=== PATIENT | male | born 1980 | race African-American/Black ===

== ENCOUNTER 2020-03-29 09:58 | Inpatient (IN) ==
[2020-03-29] MEDS ORDERED: ONDANSETRON HCL/PF 2 MG/ML VIAL IV ONE (10:20)
[2020-03-29] MEDS ORDERED: MORPHINE SULFATE 2 MG/ML DISP.SYRIN IV ONE (10:21)
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
[2020-03-29 10:39] LABS: Urine Bilirubin Negative (NEGATIVE); Urine Blood Negative /ul (NEGATIVE); Urine Ketone Negative (NEGATIVE); Urine Nitrite Negative (NEGATIVE); Urine Protein 15 mg/dL (NEGATIVE); Urine Urobilinogen Normal (NORMAL); Urine pH 7.5 pH (5.0-7.0)
[2020-03-29 10:43] LABS: Hematocrit 40.4 % (42.0-52.0); Hemoglobin 13.4 gm/dL (13.5-18.0); Mean Cell Volume 94.6 fl (78-100); Mean Corpuscular Hemoglobin 31.4 pg (27-31); Mean Corpuscular Hgb Conc 33.2 g/dl (32-36); Mean Platelet Volume 10.9 fl (8-11.3); Neutrophil # 8.1 K/mm3 (1.3-6.0); Neutrophil % 72.9 % (42-75.0); Platelet Count 234 K/mm3 (150-450); Red Blood Count 4.27 M/mm3 (4.7-6.0); Red Cell Distribution Width 12.1 % (11.5-14.0); White Blood Count 11.1 K/mm3 (4.0-10.5)
[2020-03-29 10:47] LABS: Urine Appearance Clear (CLEAR); Urine Bacteria None Seen; Urine Color Yellow; Urine WBC 0-5 /hpf (0-5)
[2020-03-29 10:48] LABS: Urine RBC None Seen /hpf (0-5)
[2020-03-29 10:51] LABS: Prothrombin Time (Patient) 10.5 Seconds (9.1-10.7)
[2020-03-29 10:52] LABS: INR 1.06 INR (0.92-1.08); Partial Thrombolplastin Time 30.3 Seconds (24-32)
[2020-03-29 10:56] LABS: Cocaine Ur Negative (NEGATIVE); Urine Barbiturate Negative (NEGATIVE); Urine Benzodiazepines Negative (NEGATIVE); Urine Opiates Negative (NEGATIVE); Urine PCP Negative (NEGATIVE)
[2020-03-29 10:56] LABS: ALT 73 U/L (19-67); AST 35 U/L (0-48); Alkaline Phosphatase * 87 U/L (50-170); Amylase * 467 U/L (25-115); Anion Gap 11.1 mmol/L (6.8-13.8); BUN/Creatinine Ratio 12.6 (9.0-21.6); Bilirubin, Total 0.4 mg/dL (0.0-1.1); Blood Urea Nitrogen 14 mg/dL (6-23); Ca. Corrected For Albumin 8.9 mg/dL (8.4-10.2); Calcium * 9.2 mg/dL (7.9-10.9); Carbon Dioxide 30.4 mmol/L (24-32.6); Chloride 104 mmol/L (97-106); Glucose * 112 mg/dL (70-110); Magnesium 1.9 mg/dL (1.2-2.8); Potassium 3.5 mmol/L (3.4-4.6); Sodium 142 mmol/L (132-142); Total Protein 7.3 gm/dL (6.2-8.2)
[2020-03-29 11:00] LABS: Urine THC Positive (NEGATIVE)
[2020-03-29] MEDS ORDERED: MORPHINE SULFATE 4 MG/ML SYRG IV ONE (11:13)
[2020-03-29] MEDS: NORMAL SALINE 1,000 ML IV PRN ×4 (11:22→22:38)
[2020-03-29 11:31] LABS: Lipase 4644 U/L (73-393)
[2020-03-29] MEDS ORDERED: ONDANSETRON HCL/PF 2 MG/ML VIAL IV PRN (11:50)
[2020-03-29] MEDS ORDERED: MORPHINE SULFATE 4 MG/ML SYRG IV PRN (11:50)
[2020-03-29] MEDS ORDERED: MULTIVIT INFUSN,ADULT 4,VIT K 10 ML, THIAMINE HCL 100 MG in DEXTROSE 5 % IN WATER 1,000 ML IV SCH ×3 (13:00)
[2020-03-29] MEDS ORDERED: MULTIVIT INFUSN,ADULT 4,VIT K 10 ML, THIAMINE HCL 100 MG in NORMAL SALINE 1,000 ML IV SCH ×2 (14:45→15:00)
[2020-03-29] MEDS: ENALAPRILAT DIHYDRATE 2.5 MG/2 ML VIAL IV SCH ×2 (14:56→21:00)
[2020-03-29] MEDS: amLODIPine BESYLATE 10 MG TABLET PO SCH (14:56)
[2020-03-29] MEDS: MORPHINE SULFATE 10 MG/ML SYRG IV PRN ×5 (15:09→23:43)
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
[2020-03-30] MEDS: MORPHINE SULFATE 10 MG/ML SYRG IV PRN ×3 (01:46→07:43)
[2020-03-30] MEDS: ENALAPRILAT DIHYDRATE 2.5 MG/2 ML VIAL IV SCH ×2 (03:00→07:49)
[2020-03-30 06:45] LABS: Albumin * 3.5 gm/dl (3.4-5.0); Anion Gap 9.8 mmol/L (6.8-13.8); BUN/Creatinine Ratio 8.6 (9.0-21.6); Bilirubin, Total 0.6 mg/dL (0.0-1.1); Ca. Corrected For Albumin 8.3 mg/dL (8.4-10.2); Calcium * 8.2 mg/dL (7.9-10.9); Carbon Dioxide 28.6 mmol/L (24-32.6); Potassium 3.4 mmol/L (3.4-4.6); Total Protein 6.8 gm/dL (6.2-8.2)
[2020-03-30] MEDS: NORMAL SALINE 1,000 ML IV PRN (06:46)
[2020-03-30 07:00] LABS: Hematocrit 44.3 % (42.0-52.0); Hemoglobin 14.7 gm/dL (13.5-18.0); Mean Cell Volume 94.3 fl (78-100); Mean Corpuscular Hemoglobin 31.3 pg (27-31); Mean Corpuscular Hgb Conc 33.2 g/dl (32-36); Mean Platelet Volume 11.3 fl (8-11.3); Neutrophil # 9.3 K/mm3 (1.3-6.0); Neutrophil % 74.2 % (42-75.0); Platelet Count 237 K/mm3 (150-450); White Blood Count 12.6 K/mm3 (4.0-10.5)
[2020-03-30] MEDS: amLODIPine BESYLATE 10 MG TABLET PO SCH (09:43)
--- NOTE | 2020-03-30 09:52 | PN ---
Subjective - Date and Time Seen Date: 03/30/20 Time: 08:10 Subjective Narrative: Parrish Hill is feeling quite a bit better this morning. He denies nausea and he has not had any further emesis. He denies abdominal pain. He did notice some abdominal discomfort after taking his morning medicines. His blood pressure remains elevated with diastolic of 115 this morning. He is getting amlodipine 10 mg daily and enalapril 2-1/2 mg 4 times daily. I will change that to oral today. His lipase is dropped from an admission of 4644 down to 923 this morning. He has had a clear liquid breakfast and is tolerated that well without any abdominal discomfort or nausea developing. I will keep him on clear liquids today recheck his lipase again in the morning and progress his diet afterwards if he is doing well. He is not showing any signs of alcohol withdrawal. Objective - Review of Systems Generalized/Overall Review: Reports: Weakness EENTM: Reports: No Symptoms Reported Respiratory: Reports: No Symptoms Reported Cardiac: Reports: No Symptoms Reported Abdominal: Reports: No Symptoms Reported Genitourinary Symptoms: Reports: No Symptoms Reported Musculoskeletal Complaints: Reports: No Symptoms Reported Neurological: Reports: No Symptoms Reported Skin: Reports: No Symptoms Reported Endocrine: Reports: No Symptoms Reported - Vitals Vitals: Last Vital Signs Temp 36.8 C 03/30/20 06:35 Pulse 81 03/30/20 07:49 Resp 20 03/30/20 06:35 BP 165/116 H 03/30/20 07:49 Pulse Ox 100 03/30/20 06:35 - Abnormal Lab Findings Abnormal Lab Findings: Abnormal Lab Results 03/29/20 03/29/20 03/29/20 Range/Units 10:37 10:37 10:39 WBC 11.1 H (4.0-10.5) K/mm3 RBC 4.27 L (4.7-6.0) M/mm3 Hgb 13.4 L (13.5-18.0) gm/dL Hct 40.4 L (42.0-52.0) % MCH 31.4 H (27-31) pg Immature Gran # (Auto) (0.000-0.0310) K/mm3 Lymphocytes % 17.1 L (20-51) % Neutrophils # 8.1 H (1.3-6.0) K/mm3 Monocytes # (0.0-1.0) k/mm3 BUN/Creatinine Ratio (9.0-21.6) Random Glucose 112 H (70-110) mg/dL Calcium Adj for Albumin (8.4-10.2) mg/dL ALT 73 H (19-67) U/L Amylase 467 H (25-115) U/L Lipase 4644 H (73-393) U/L Urine Protein 15 H (NEGATIVE) mg/dL Urine Marijuana (THC) (NEGATIVE) 03/29/20 03/30/20 03/30/20 Range/Units 10:39 06:28 06:28 WBC 12.6 H (4.0-10.5) K/mm3 RBC (4.7-6.0) M/mm3 Hgb (13.5-18.0) gm/dL Hct (42.0-52.0) % MCH 31.3 H (27-31) pg Immature Gran # (Auto) 0.05 H (0.000-0.0310) K/mm3 Lymphocytes % 15.2 L (20-51) % Neutrophils # 9.3 H (1.3-6.0) K/mm3 Monocytes # 1.1 H (0.0-1.0) k/mm3 BUN/Creatinine Ratio 8.6 L (9.0-21.6) Random Glucose (70-110) mg/dL Calcium Adj for Albumin 8.3 L (8.4-10.2) mg/dL ALT (19-67) U/L Amylase (25-115) U/L Lipase 923 H (73-393) U/L Urine Protein (NEGATIVE) mg/dL Urine Marijuana (THC) Positive H (NEGATIVE) - EKG/Xray Findings EKG: NSR EKG read: Interp. by me XRAY: abdomen Interpretation: Reviewed by me - Exam Constitutional: Present: Alert, Oriented x3, Cooperative, Well developed, Well nourished, No distress ENT Exam: Present: normal ENT inspection, hearing grossly normal, pharynx normal, TMs normal Neck: Present: non-tender, full range of motion, supple, normal inspection Breasts: Present: Exam deferred, Nontender Respiratory: Present: chest non-tender, lungs clear, normal breath sounds, no respiratory distress, no accessory muscle use Cardiovascular/Chest: Present: normal peripheral pulses, regular rate, rhythm, no chest tenderness, no edema Abdomen: Present: Normal bowel sounds, soft, nontender, nondistended, no rebound tenderness, no hepatospenomegaly, no masses /Rectal: Present: Exam deferred Extremity: Present: normal range of motion, non-tender, normal inspection, no pedal edema, no calf tenderness, normal capillary refill Skin Exam: Present: normal color, warm/dry, no cyanosis Lymphatic: Present: no adenopathy 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 Continue clear liquid diet 2. Up ad dmirty. 3. Continue with amlodipine and enalapril and change enalapril to p.o. 4. Recheck morning lab tomorrow morning - Problems/Diagnosis (1) Chronic alcohol abuse Problem: Acute (2) Dehydration Problem: Acute (3) Low back pain Problem: Acute Qualifiers: Chronicity: chronic Sciatica presence: without sciatica (4) Abdominal pain Problem: Acute Qualifiers: Abdominal location: left upper quadrant Qualified Code(s): R10.12 - Left upper quadrant pain (5) Acute pancreatitis Problem: Acute Qualifiers: Pancreatitis type: alcohol induced Acute pancreatitis complication: unspecified Qualified Code(s): K85.20 - Alcohol induced acute pancreatitis wit hout necrosis or infection
[2020-03-30] MEDS: ENALAPRIL MALEATE 20 MG TABLET PO SCH ×2 (10:20→20:35)
[2020-03-30] MEDS: MORPHINE SULFATE 2 MG/ML DISP.SYRIN IV PRN ×5 (10:23→21:56)
[2020-03-30] MEDS ORDERED: SENNOSIDES/DOCUSATE SODIUM 1 TAB TABLET PO PRN (19:50)
[2020-03-31] MEDS: MORPHINE SULFATE 2 MG/ML DISP.SYRIN IV PRN ×4 (00:09→06:18)
[2020-03-31 06:23] LABS: Mean Corpuscular Hgb Conc 33.3 g/dl (32-36); Mean Platelet Volume 11.7 fl (8-11.3); Neutrophil % 68.3 % (42-75.0); Platelet Count 232 K/mm3 (150-450); Red Blood Count 4.84 M/mm3 (4.7-6.0); Red Cell Distribution Width 11.9 % (11.5-14.0); White Blood Count 10.2 K/mm3 (4.0-10.5)
[2020-03-31 06:37] LABS: Albumin * 3.4 gm/dl (3.4-5.0); Anion Gap 10.7 mmol/L (6.8-13.8); Bilirubin, Total 0.6 mg/dL (0.0-1.1); Calcium * 8.8 mg/dL (7.9-10.9); Carbon Dioxide 28.8 mmol/L (24-32.6); Potassium 3.5 mmol/L (3.4-4.6); Total Protein 6.8 gm/dL (6.2-8.2)
[2020-03-31] MEDS ORDERED: KETOROLAC TROMETHAMINE 30 MG/ML VIAL IV ONE (09:06)
[2020-03-31] MEDS: ENALAPRIL MALEATE 20 MG TABLET PO SCH ×2 (14:11→20:12)
[2020-03-31] MEDS: amLODIPine BESYLATE 10 MG TABLET PO SCH (14:12)
[2020-03-31] MEDS: KETOROLAC TROMETHAMINE 30 MG/ML VIAL IV PRN ×2 (15:53→22:03)
--- NOTE | 2020-03-31 23:19 | PN ---
Subjective - Date and Time Seen Date: 03/31/20 Time: 09:10 Subjective Narrative: Abdominal pain is still present. Morphine helps but does not last. He feels like his appetite is starting to return. Lipase down to 400 today. Objective - Vitals Vitals: Last Vital Signs Temp 36.8 C 03/31/20 18:00 Pulse 62 03/31/20 20:12 Resp 17 03/31/20 18:00 BP 151/88 H 03/31/20 20:12 Pulse Ox 96 03/31/20 18:00 - Abnormal Lab Findings Abnormal Lab Findings: Abnormal Lab Results 03/31/20 03/31/20 Range/Units 05:55 05:55 MPV 11.7 H (8-11.3) fl Immature Gran # (Auto) 0.04 H (0.000-0.0310) K/mm3 Neutrophils # 7.0 H (1.3-6.0) K/mm3 BUN 5 L (6-23) mg/dL BUN/Creatinine Ratio 5.0 L (9.0-21.6) Lipase 462 H (73-393) U/L - Exam Constitutional: Present: Alert, Oriented x3, Cooperative ENT Exam: Present: hearing grossly normal Respiratory: Present: lungs clear, normal breath sounds, no respiratory distress Cardiovascular/Chest: Present: regular rate, rhythm, no edema, no murmur Abdomen: Present: Normal bowel sounds, soft, nondistended, tender - epigastric Skin Exam: Present: normal color, warm/dry, no cyanosis Assessment/Plan Plan Narrative: Parrish has alcohol induced pancreatitits. Lipase improved to 400 today. He continues to have abdominal pain so I do not feel comfortable advancing diet at this time. Will continue to monitor and when pain is improved will plan to advance diet. - Problems/Diagnosis (1) Acute pancreatitis Problem: Acute Qualifiers: Pancreatitis type: alcohol induced Acute pancreatitis complication: unspecified Qualified Code(s): K85.20 - Alcohol induced acute pancreatitis without necrosis or infection
[2020-04-01] MEDS: KETOROLAC TROMETHAMINE 30 MG/ML VIAL IV PRN (04:22)
[2020-04-01 06:41] LABS: Hematocrit 41.8 % (42.0-52.0); Mean Cell Volume 92.9 fl (78-100); Mean Corpuscular Hemoglobin 31.1 pg (27-31); Mean Corpuscular Hgb Conc 33.5 g/dl (32-36); Mean Platelet Volume 11.3 fl (8-11.3); Platelet Count 222 K/mm3 (150-450); Red Cell Distribution Width 11.9 % (11.5-14.0); White Blood Count 8.1 K/mm3 (4.0-10.5)
[2020-04-01 06:49] LABS: Total Cells Counted 100
[2020-04-01 06:54] LABS: Albumin * 3.4 gm/dl (3.4-5.0); Anion Gap 11.4 mmol/L (6.8-13.8); BUN/Creatinine Ratio 6.3 (9.0-21.6); Bilirubin, Total 0.5 mg/dL (0.0-1.1); Ca. Corrected For Albumin 9.3 mg/dL (8.4-10.2); Calcium * 9.1 mg/dL (7.9-10.9); Carbon Dioxide 29.9 mmol/L (24-32.6); Potassium 3.3 mmol/L (3.4-4.6); Total Protein 6.9 gm/dL (6.2-8.2)
[2020-04-01 07:19] LABS: Atypical (Reactive) Lymph 3 % (0-2); Eosinophil 2 % (0-3); Lymphocyte 24 % (20-51); Monocyte 9 % (0-9); Neutrophil 62 % (42-75)
[2020-04-01 07:25] LABS: Anisocytosis Trace; Platelet Estimate Normal (NORMAL)
[2020-04-01 07:26] LABS: Toxic Granulation Trace
[2020-04-01] MEDS: amLODIPine BESYLATE 10 MG TABLET PO SCH (09:09)
[2020-04-01] MEDS: ENALAPRIL MALEATE 20 MG TABLET PO SCH (09:09)
--- NOTE | 2020-04-01 13:20 | DS ---
(1) Acute pancreatitis Problem: Acute Qualifiers: Pancreatitis type: alcohol induced Acute pancreatitis complication: unspecified Qualified Code(s): K85.20 - Alcohol induced acute pancreatitis without necrosis or infection (2) Hypertension Problem: Acute Qualifiers: Hypertension type: essential hypertension Qualified Code(s): I10 - Essential (primary) hypertension Date of Discharge:: 04/01/20 Hospital Course: Parrish was admitted for alcohol induced acute pancreatitis. He was treated by being NPO and given IV fluids and morphine for pain control. Blood pressure was elevated. It is suspected that he has underlying untreated essential hypertension although pain could be a contributor. Over time abdominal pain and elevated lipase improved and as it did his diet was advanced. Today his lipase is normal and he is abdominal pain free. He will be discharged to home and instructed to limit fatty foods and avoid alcohol. He will follow up in a week in regards to blood pressure. Procedures Performed: none Results and Findings: Lab Pending Results 03/29/20 10:37: WBC 11.1 H, RBC 4.27 L, Hgb 13.4 L, Hct 40.4 L, MCV 94.6, MCH 31.4 H, MCHC 33.2, RDW 12.1, Plt Count 234, MPV 10.9, Immature Gran % (Auto) 0.30, Immature Gran # (Auto) 0.03, Neutrophils % 72.9, Lymphocytes % 17.1 L, Monocytes % 8.1, Eosinophils % 1.3, Basophils % 0.3, Nucleated RBC % 0.0, Neutrophils # 8.1 H, Lymphocytes # 1.89, Monocytes # 0.9, Eosinophils # 0.1, Absolute Basophils 0.0 03/29/20 10:37: PT 10.5, INR (Anticoag Therapy) 1.06, PTT (Estephania) 30.3 03/29/20 10:37: Sodium 142, Plasma Sodium 142, Potassium 3.5, Chloride 104, Carbon Dioxide 30.4, Anion Gap 11.1, BUN 14, Creatinine 1.11, Est GFR (Non-Af Amer) 94, BUN/Creatinine Ratio 12.6, Random Glucose 112 H, Calcium 9.2, Calcium Adj for Albumin 8.9, Magnesium 1.9, Total Bilirubin 0.4, AST 35, ALT 73 H, Alkaline Phosphatase 87, Total Protein 7.3, Albumin 4.0, Amylase 467 H, Lipase 4644 H, Ethyl Alcohol Less than 3.0 03/29/20 10:39: Urine Color Yellow, Urine Appearance Clear, Urine pH 7.5, Ur Specific [place] 1.020, Urine Protein 15 H, Urine Glucose (UA) Negative, Urine Ketones Negative, Urine Blood Negative, Urine Nitrate Negative, Urine Bilirubin Negative, Prot Sulfosalicylic Acd Negative, Urine Urobilinogen Normal, Ur Leukocyte Esterase Negative, Urine RBC None seen, Urine WBC 0-5, Ur Epithelial Cells 0-5, Urine Bacteria None seen, Urine Culture Comments No culture indicated 03/29/20 10:39: Urine Opiates Screen Negative, Barbiturate Screen Negative, Ur Phencyclidine Scrn Negative, Urine Amphetamine Negative, U Benzodiazepines Scrn Negative, Urine Cocaine Screen Negative, Urine Marijuana (THC) Positive H 03/30/20 06:28: WBC 12.6 H, RBC 4.70, Hgb 14.7, Hct 44.3, MCV 94.3, MCH 31.3 H, MCHC 33.2, RDW 12.0, Plt Count 237, MPV 11.3, Immature Gran % (Auto) 0.40, Immature Gran # (Auto) 0.05 H, Neutrophils % 74.2, Lymphocytes % 15.2 L, Monocytes % 8.7, Eosinophils % 1.2, Basophils % 0.3, Nucleated RBC % 0.0, Neutrophils # 9.3 H, Lymphocytes # 1.91, Monocytes # 1.1 H, Eosinophils # 0.2, Absolute Basophils 0.0 03/30/20 06:28: Sodium 138, Plasma Sodium 138, Potassium 3.4, Chloride 103, Carbon Dioxide 28.6, Anion Gap 9.8, BUN 8, Creatinine 0.93, Est GFR (Non-Af Amer) 116 D, BUN/Creatinine Ratio 8.6 L, Random Glucose 100, Calcium 8.2, Calcium Adj for Albumin 8.3 L, Total Bilirubin 0.6, AST 27, ALT 57, Alkaline Phosphatase 96, Total Protein 6.8, Albumin 3.5, Lipase 923 H 03/31/20 05:55: WBC 10.2, RBC 4.84, Hgb 15.0, Hct 45.0, MCV 93.0, MCH 31.0, MCHC 33.3, RDW 11.9, Plt Count 232, MPV 11.7 H, Immature Gran % (Auto) 0.40, Immature Gran # (Auto) 0.04 H, Neutrophils % 68.3, Lymphocytes % 20.6, Monocytes % 8.7, Eosinophils % 1.6, Basophils % 0.4, Nucleated RBC % 0.0, Neutrophils # 7.0 H, Lymphocytes # 2.11, Monocytes # 0.9, Eosinophils # 0.2, Absolute Basophils 0.0 03/31/20 05:55: Sodium 139, Plasma Sodium 139, Potassium 3.5, Chloride 103, Carbon Dioxide 28.8, Anion Gap 10.7, BUN 5 L, Creatinine 1.00, Est GFR (Non-Af Amer) 106, BUN/Creatinine Ratio 5.0 L, Random Glucose 106, Calcium 8.8, Calcium Adj for Albumin 9.0, Total Bilirubin 0.6, AST 22, ALT 47, Alkaline Phosphatase 80, Total Protein 6.8, Albumin 3.4, Lipase 462 H 04/01/20 06:35: WBC 8.1 D, RBC 4.50 L, Hgb 14.0, Hct 41.8 L, MCV 92.9, MCH 31.1 H, MCHC 33.5, RDW 11.9, Plt Count 222, MPV 11.3, Neutrophils % (Manual) 62, Lymphocytes % (Manual) 24, Monocytes % (Manual) 9, Eosinophils % (Manual) 2, Neutrophils # (Manual) 5.0, Lymphocytes # (Manual) 1.9, Monocytes # (Manual) 0.7, Eosinophils # (Manual) 0.2, Atypic/Reactive Lymphs 3 H, Toxic Granulation Trace, Platelet Estimate Normal, Anisocytosis Trace 04/01/20 06:35: Sodium 137, Plasma Sodium 137, Potassium 3.3 L, Chloride 99, Carbon Dioxide 29.9, Anion Gap 11.4, BUN 6, Creatinine 0.96, Est GFR (Non-Af Amer) 112, BUN/Creatinine Ratio 6.3 L, Random Glucose 112 H, Calcium 9.1, Calcium Adj for Albumin 9.3, Total Bilirubin 0.5, AST 22, ALT 42, Alkaline Phosphatase 81, Total Protein 6.9, Albumin 3.4, Lipase 209 Discharge Location: Home Disposition: Home self-care Condition: Good Discharge Activity: Activity as tolerated Discharge Diet: Low salt, Low fat/chol - avoid alcohol Referrals: Lee Craig DO [Staff Physician] - One Week Problem Oriented Discharge Instructions to Patient/Family: Acute Pancreatitis, [id number], Hypertension, Adult, [id number] Prescriptions (Any new or edited meds): amLODIPine BESYLATE [Norvasc] 10 mg PO DAILY #30 tab Prescription Printed Complete Home Medications List: Complete Home Medication List: amLODIPine BESYLATE [Norvasc] 10 mg PO DAILY #30 tab 04/01/20 Forms: Patient Portal Registration
[2020-04-01 13:34] VITALS: BP 141/96
== END 2020-04-01 15:00 | disposition home or self-care (01) | DRG 439 ==
LOC: ER 09:58 → MS 11:46
PROVIDERS: ADMIT Family Medicine; ATTEND Family Medicine
CPT/HCPCS: 36415; 74019; 74020; 80053; 80307; 81001; 82150; 83690; 83735; 85007; 85025; 85610; 85730; 96361; 96374; 96375; 99284; 99285; J2405

== ENCOUNTER 2020-08-16 09:24 | Inpatient (IN) ==
[2020-08-16] MEDS ORDERED: KETOROLAC TROMETHAMINE 30 MG/ML VIAL IV ONE (10:03)
[2020-08-16] MEDS ORDERED: NORMAL SALINE 1,000 ML IV ONE ×2 (10:03→15:01)
[2020-08-16] MEDS ORDERED: LORazepam 2 MG/ML DISP.SYRIN IV ONE (10:03)
[2020-08-16] MEDS ORDERED: diphenhydrAMINE HCL 50 MG/ML VIAL IV ONE (10:03)
[2020-08-16] MEDS ORDERED: PROCHLORPERAZINE EDISYLATE 5 MG/ML VIAL IV ONE (10:03)
[2020-08-16] MEDS ORDERED: MORPHINE SULFATE 2 MG/ML DISP.SYRIN IV ONE ×2 (10:04→13:28)
[2020-08-16 10:54] LABS: Urine Bilirubin Negative (NEGATIVE); Urine Blood Negative /ul (NEGATIVE); Urine Ketone 15 mg/dL (NEGATIVE); Urine Nitrite Negative (NEGATIVE); Urine Protein Negative (NEGATIVE); Urine Urobilinogen Normal (NORMAL); Urine pH 6.5 pH (5.0-7.0)
[2020-08-16 11:02] LABS: Hematocrit 43.5 % (42.0-52.0); Hemoglobin 14.6 gm/dL (13.5-18.0); Mean Cell Volume 87.9 fl (78-100); Mean Corpuscular Hemoglobin 29.5 pg (27-31); Mean Corpuscular Hgb Conc 33.6 g/dl (32-36); Mean Platelet Volume 12.2 fl (8-11.3); Neutrophil # 7.8 K/mm3 (1.3-6.0); Neutrophil % 81.5 % (42-75.0); Platelet Count 174 K/mm3 (150-450); Red Blood Count 4.95 M/mm3 (4.7-6.0); Red Cell Distribution Width 12.7 % (11.5-14.0); White Blood Count 9.6 K/mm3 (4.0-10.5)
[2020-08-16 11:12] LABS: Urine Appearance Clear (CLEAR); Urine Bacteria None Seen; Urine Color Yellow; Urine RBC None Seen /hpf (0-5); Urine WBC None Seen /hpf (0-5)
[2020-08-16 11:19] LABS: ALT 26 U/L (19-67); AST 31 U/L (0-48); Albumin * 4.2 gm/dl (3.4-5.0); Alkaline Phosphatase * 78 U/L (50-170); Anion Gap 16.5 mmol/L (6.8-13.8); Bilirubin, Total 0.7 mg/dL (0.0-1.1); Blood Urea Nitrogen 13 mg/dL (6-23); Ca. Corrected For Albumin 9.4 mg/dL (8.4-10.2); Calcium * 9.9 mg/dL (7.9-10.9); Chloride 100 mmol/L (97-106); Glucose * 134 mg/dL (70-110); LD 282 U/L (85-227); Potassium 4.5 mmol/L (3.4-4.6); Sodium 136 mmol/L (132-142); Total Protein 7.5 gm/dL (6.2-8.2)
[2020-08-16 11:22] LABS: Cocaine Ur Negative (NEGATIVE); Urine Barbiturate Negative (NEGATIVE); Urine Benzodiazepines Negative (NEGATIVE); Urine Opiates Negative (NEGATIVE); Urine PCP Negative (NEGATIVE)
[2020-08-16 11:31] LABS: Urine THC Positive (NEGATIVE)
[2020-08-16 11:52] LABS: Lipase 4475 U/L (73-393)
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
[2020-08-16] MEDS ORDERED: MORPHINE SULFATE 2 MG/ML DISP.SYRIN IV PRN (16:34)
[2020-08-16] MEDS: MORPHINE SULFATE 2 MG/ML DISP.SYRIN IV PRN ×3 (16:55→22:30)
[2020-08-16] MEDS: ONDANSETRON HCL/PF 2 MG/ML VIAL IV PRN ×2 (17:16→21:29)
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
[2020-08-16] MEDS: NORMAL SALINE 1,000 ML IV PRN (21:29)
[2020-08-16] MEDS: ENALAPRILAT DIHYDRATE 1.25 MG/ML VIAL IV SCH (22:31)
[2020-08-17] MEDS: MORPHINE SULFATE 2 MG/ML DISP.SYRIN IV PRN ×6 (00:19→16:11)
[2020-08-17] MEDS: ONDANSETRON HCL/PF 2 MG/ML VIAL IV PRN ×4 (01:31→16:11)
[2020-08-17] MEDS: NORMAL SALINE 1,000 ML IV PRN ×4 (02:53→21:12)
[2020-08-17] MEDS: ENALAPRILAT DIHYDRATE 1.25 MG/ML VIAL IV SCH (04:21)
[2020-08-17 07:30] LABS: Hematocrit 39.4 % (42.0-52.0); Hemoglobin 13.1 gm/dL (13.5-18.0); Mean Cell Volume 89.3 fl (78-100); Mean Corpuscular Hemoglobin 29.7 pg (27-31); Mean Corpuscular Hgb Conc 33.2 g/dl (32-36); Mean Platelet Volume 11.5 fl (8-11.3); Neutrophil % 77.2 % (42-75.0); Platelet Count 171 K/mm3 (150-450); Red Blood Count 4.41 M/mm3 (4.7-6.0); Red Cell Distribution Width 12.5 % (11.5-14.0); White Blood Count 10.4 K/mm3 (4.0-10.5)
[2020-08-17 07:33] LABS: Albumin * 3.9 gm/dl (3.4-5.0); Anion Gap 11.3 mmol/L (6.8-13.8); Bilirubin, Total 0.5 mg/dL (0.0-1.1); Ca. Corrected For Albumin 8.4 mg/dL (8.4-10.2); Calcium * 8.6 mg/dL (7.9-10.9); Carbon Dioxide 25.9 mmol/L (24-32.6); Potassium 3.2 mmol/L (3.4-4.6)
[2020-08-17] MEDS ORDERED: KETOROLAC TROMETHAMINE 30 MG/ML VIAL IV PRN (09:20)
[2020-08-17] MEDS ORDERED: LISINOPRIL 20 MG TABLET PO SCH ×2 (09:30→14:45)
[2020-08-17] MEDS: ENOXAPARIN SODIUM 40 MG/0.4 ML SYRG SC SCH (10:56)
[2020-08-17] MEDS: amLODIPine BESYLATE 10 MG TABLET PO SCH (12:24)
[2020-08-17] MEDS: POTASSIUM CHLORIDE IN WATER 100 ML IV SCH ×3 (12:25→14:29)
[2020-08-17] MEDS ORDERED: HYDROCHLOROTHIAZIDE 25 MG TABLET PO SCH (16:49)
[2020-08-17] MEDS: hydrALAZINE HCL 10 MG TABLET PO SCH ×2 (17:02→22:27)
[2020-08-17] MEDS ORDERED: LORazepam 1 MG TABLET PO PRN ×2 (17:08)
[2020-08-17] MEDS: THIAMINE HCL 100 MG TABLET PO SCH (17:14)
[2020-08-17] MEDS ORDERED: KETOROLAC TROMETHAMINE 10 MG TABLET PO SCH (17:30)
[2020-08-17] MEDS: KETOROLAC TROMETHAMINE 10 MG TABLET PO SCH ×2 (17:39→21:08)
--- NOTE | 2020-08-17 17:45 | PN ---
Subjective - Date and Time Seen Date: 08/17/20 Time: 09:18 Subjective Narrative: He complains of continued abdominal pain. Denies nausea vomiting today. He would like to try to drink Objective - Review of Systems Generalized/Overall Review: Denies: Fever Respiratory: Denies: Shortness of Breath Cardiac: Denies: Chest Pain Abdominal: Reports: Abdominal Pain Misc: All systems neg except as marked - Vitals Vitals: Last Vital Signs Temp 36.9 C 08/17/20 14:17 Pulse 85 08/17/20 17:02 Resp 16 08/17/20 14:17 BP 178/108 H 08/17/20 17:02 Pulse Ox 95 08/17/20 14:17 - Abnormal Lab Findings Abnormal Lab Findings: Abnormal Lab Results 08/17/20 08/17/20 Range/Units 07:14 07:14 RBC 4.41 L (4.7-6.0) M/mm3 Hgb 13.1 L (13.5-18.0) gm/dL Hct 39.4 L (42.0-52.0) % MPV 11.5 H (8-11.3) fl Immature Gran # (Auto) 0.04 H (0.000-0.0310) K/mm3 Neutrophils % 77.2 H (42-75.0) % Lymphocytes % 15.6 L (20-51) % Neutrophils # 8.0 H (1.3-6.0) K/mm3 Potassium 3.2 L D (3.4-4.6) mmol/L BUN/Creatinine Ratio 7.0 L (9.0-21.6) Random Glucose 125 H (70-110) mg/dL Lipase 969 H (73-393) U/L - Exam Constitutional: Present: Alert, Cooperative, Well developed, Well nourished, No distress, Middle aged ENT Exam: Present: hearing grossly normal Neck: Present: non-tender, full range of motion, supple. Absent: lymphadenopathy (R), lymphadenopathy (L) Respiratory: Present: lungs clear, no respiratory distress, no accessory muscle use, No wheezing. Absent: crackles, rhonchi Cardiovascular/Chest: Present: normal peripheral pulses, regular rate, rhythm, no edema, no murmur Abdomen: Present: Normal bowel sounds, soft, nontender Extremity: Present: no pedal edema Skin Exam: Present: normal color, warm/dry Neurologic: Present: alert, normal mood/affect Appearance: Present: appropriate appearance Eye contact: Present: cooperative Thoughts: Present: normal mood /affect Assessment/Plan Plan Narrative: 40-year-old male with past medical history of pancreatitis and alcohol abuse presents from home with complaints of abdominal pain and nausea that began yesterday. He states he has been drinking alcohol. In the emergency room he was found to have elevated lipase of 4475, tox screen was positive for marijuana, CT abdomen and pelvis showed mild peripancreatic inflammation involving the body and tail suggesting a low-grade pancreatitis, no evidence of pseudocyst formation, dilation of the pancreatic duct with few calcifications in the pancreatic head suggesting early sequelae of chronic pancreatitis, mild gaseous distention of the duodenum and proximal jejunum which most likely reflects a focal ileus. He is being admitted for acute pancreatitis. Plan #1 Advance to a clear liquid diet. Since he is tolerating his diet, I will decrease IV fluids to 70 mL/h. #2 Discontinue morphine and switch him to Toradol 10 mg orally every 6 hours. #3 His blood pressure significantly elevated. I have started him on lisinopril, amlodipine, hydrochlorothiazide and hydralazine. #4 CBC, CMP and lipase in the morning #5 CIWA protocol with lorazepam, start thiamine - Problems/Diagnosis (1) Acute pancreatitis Problem: Acute Qualifiers: (2) Chronic alcohol abuse Problem: Acute (3) Hypertension Problem: Acute Qualifiers: (4) Intractable pain Problem: Acute (5) Ileus Problem: Acute
[2020-08-17] MEDS: LORazepam 1 MG TABLET PO PRN (21:11)
[2020-08-18] MEDS: KETOROLAC TROMETHAMINE 10 MG TABLET PO SCH ×2 (02:06→08:19)
[2020-08-18] MEDS: LORazepam 1 MG TABLET PO PRN (02:10)
[2020-08-18] MEDS: ONDANSETRON HCL/PF 2 MG/ML VIAL IV PRN (02:11)
[2020-08-18] MEDS: hydrALAZINE HCL 10 MG TABLET PO SCH ×2 (05:02→11:04)
[2020-08-18 06:29] LABS: Hematocrit 42.8 % (42.0-52.0); Hemoglobin 14.1 gm/dL (13.5-18.0); Mean Cell Volume 90.1 fl (78-100); Mean Corpuscular Hemoglobin 29.7 pg (27-31); Mean Corpuscular Hgb Conc 32.9 g/dl (32-36); Mean Platelet Volume 11.4 fl (8-11.3); Platelet Count 166 K/mm3 (150-450); Red Blood Count 4.75 M/mm3 (4.7-6.0); Red Cell Distribution Width 12.5 % (11.5-14.0); White Blood Count 8.6 K/mm3 (4.0-10.5)
[2020-08-18 06:39] LABS: Total Cells Counted 100
[2020-08-18 06:49] LABS: Albumin * 3.7 gm/dl (3.4-5.0); Anion Gap 15.1 mmol/L (6.8-13.8); BUN/Creatinine Ratio 3.8 (9.0-21.6); Bilirubin, Total 0.6 mg/dL (0.0-1.1); Calcium * 9.1 mg/dL (7.9-10.9); Carbon Dioxide 25.2 mmol/L (24-32.6); Potassium 3.3 mmol/L (3.4-4.6); Total Protein 6.9 gm/dL (6.2-8.2)
[2020-08-18 07:04] LABS: Atypical (Reactive) Lymph 1 % (0-2); Eosinophil 2 % (0-3); Lymphocyte 41 % (20-51); Monocyte 7 % (0-9); Neutrophil 49 % (42-75); Neutrophil # 4.2 K/mm3 (1.3-6.0)
[2020-08-18] MEDS: THIAMINE HCL 100 MG TABLET PO SCH (08:18)
[2020-08-18] MEDS: amLODIPine BESYLATE 10 MG TABLET PO SCH (08:18)
[2020-08-18] MEDS ORDERED: LISINOPRIL 40 MG TABLET PO SCH (09:00)
[2020-08-18] MEDS ORDERED: POTASSIUM CHLORIDE 20 MEQ TABLET.SA PO ONE (10:39)
[2020-08-18] MEDS ORDERED: hydrALAZINE HCL 50 MG TABLET PO SCH (10:45)
--- NOTE | 2020-08-18 10:56 | DS ---
Date of Discharge:: 08/18/20 Hospital Course: 40-year-old -[place] male admitted for acute pancreatitis was evaluated at bedside was found to be afebrile and in no acute distress. Patient reports significant improvement in his epigastric pain and has tolerated oral intake without any issues. His diet has been advanced and so far he is digesting without any problem. The patient's lipase level are now normal indicating resolution of his pancreatitis. However his blood pressure continues to be an issue, therefore his antihypertensives were increased this morning. After being administered this morning's dose there was some improvement in the BP. Therefore decision to discharge the patient home with additional tablets of pain medications and oral and hypertensive was made. Patient was also counseled on the importance of abstaining from abusing alcohol and recommendation to establish with a PCP to manage his blood pressure was made. Procedures Performed: none Results and Findings: Lab Pending Results 08/16/20 10:04: WBC 9.6, RBC 4.95, Hgb 14.6, Hct 43.5, MCV 87.9, MCH 29.5, MCHC 33.6, RDW 12.7, Plt Count 174, MPV 12.2 H, Immature Gran % (Auto) 0.20, Immature Gran # (Auto) 0.02, Neutrophils % 81.5 H, Lymphocytes % 11.9 L, Monocytes % 5.7, Eosinophils % 0.4, Basophils % 0.3, Nucleated RBC % 0.0, Neutrophils # 7.8 H, Lymphocytes # 1.15 L, Monocytes # 0.6, Eosinophils # 0.0, Absolute Basophils 0.0 08/16/20 10:40: Lactic Acid, Venous 1.3 08/16/20 10:47: Sodium 136, Plasma Sodium 137, Potassium 4.5 D, Chloride 100, Carbon Dioxide 24.0, Anion Gap 16.5 H, BUN 13 D, Creatinine 1.08, Est GFR (Non- Af Amer) 97, BUN/Creatinine Ratio 12.0, Random Glucose 134 H, Calcium 9.9, Calcium Adj for Albumin 9.4, Total Bilirubin 0.7, AST 31, ALT 26, Alkaline Phosphatase 78, Lactate Dehydrogenase 282 H, Total Protein 7.5, Albumin 4.2, Lipase 4475 H, Ethyl Alcohol Less than 3.0 08/16/20 10:53: Urine Color Yellow, Urine Appearance Clear, Urine pH 6.5, Ur Specific [place] 1.010, Urine Protein Negative, Urine Glucose (UA) Negative, Urine Ketones 15, Urine Blood Negative, Urine Nitrate Negative, Urine Bilirubin Negative, Urine Urobilinogen Normal, Ur Leukocyte Esterase Negative, Urine RBC None seen, Urine WBC None seen, Ur Epithelial Cells None seen, Urine Bacteria None seen, Urine Culture Comments No culture indicated 08/16/20 10:53: Urine Opiates Screen Negative, Barbiturate Screen Negative, Ur Phencyclidine Scrn Negative, Urine Amphetamine Negative, U Benzodiazepines Scrn Negative, Urine Cocaine Screen Negative, Urine Marijuana (THC) Positive H 08/16/20 12:20: SARS-CoV-2 (PCR) Not detected 08/17/20 07:14: WBC 10.4, RBC 4.41 L, Hgb 13.1 L, Hct 39.4 L, MCV 89.3, MCH 29.7, MCHC 33.2, RDW 12.5, Plt Count 171, MPV 11.5 H, Immature Gran % (Auto) 0.40, Immature Gran # (Auto) 0.04 H, Neutrophils % 77.2 H, Lymphocytes % 15.6 L, Monocytes % 6.4, Eosinophils % 0.2, Basophils % 0.2, Nucleated RBC % 0.0, Neutrophils # 8.0 H, Lymphocytes # 1.62, Monocytes # 0.7, Eosinophils # 0.0, Absolute Basophils 0.0 08/17/20 07:14: Sodium 139, Plasma Sodium 139, Potassium 3.2 L D, Chloride 105, Carbon Dioxide 25.9, Anion Gap 11.3, BUN 8, Creatinine 1.14, Est GFR (Non-Af Amer) 91, BUN/Creatinine Ratio 7.0 L, Random Glucose 125 H, Calcium 8.6, Calcium Adj for Albumin 8.4, Total Bilirubin 0.5, AST 21, ALT 23, Alkaline Phosphatase 77, Total Protein 7.0, Albumin 3.9, Lipase 969 H 08/18/20 06:20: WBC 8.6, RBC 4.75, Hgb 14.1, Hct 42.8, MCV 90.1, MCH 29.7, MCHC 32.9, RDW 12.5, Plt Count 166, MPV 11.4 H, Neutrophils % (Manual) 49, Lymphocytes % (Manual) 41, Monocytes % (Manual) 7, Eosinophils % (Manual) 2, Neutrophils # (Manual) 4.2, Lymphocytes # (Manual) 3.5, Monocytes # (Manual) 0.6, Eosinophils # (Manual) 0.2, Atypic/Reactive Lymphs 1 08/18/20 06:20: Sodium 140, Plasma Sodium 140, Potassium 3.3 L, Chloride 103, Carbon Dioxide 25.2, Anion Gap 15.1 H, BUN 4 L, Creatinine 1.05, Est GFR (Non-Af Amer) 101, BUN/Creatinine Ratio 3.8 L, Random Glucose 112 H, Calcium 9.1, Calcium Adj for Albumin 9.0, Total Bilirubin 0.6, AST 19, ALT 24, Alkaline Phosphatase 67, Total Protein 6.9, Albumin 3.7, Lipase 382 Discharge Location: Home Disposition: Home self-care Condition: Fair Face to Face Encounter completed per [facility] Guidelines: No Discharge Activity: Activity as tolerated Discharge Diet: General/regular food Prescriptions (Any new or edited meds): hydrALAZINE HCL [Apresoline] 50 mg PO BID #60 tab Transmission Status: Pending to [facility] #[id number] Hydrochlorothiazide [Hydrodiuril] 25 mg PO DAILY@1100 #30 tab Transmission Status: Pending to [facility] #[id number] amLODIPine BESYLATE [Norvasc] 10 mg PO DAILY #30 tab Transmission Status: Pending to [facility] #[id number] Ketorolac Tromethamine [Toradol] 10 mg PO Q6H #40 tab Transmission Status: Pending to [facility] #[id number] Thiamine HCl [Vitamin B-1] 100 mg PO DAILY #30 tab Transmission Status: Pending to [facility] #[id number] Lisinopril [Zestril] 40 mg PO DAILY #30 tab Transmission Status: Pending to [facility] #[id number] Complete Home Medications List: Complete Home Medication List: Hydrochlorothiazide [Hydrodiuril] 25 mg PO DAILY@1100 #30 tab 08/18/20 Ketorolac Tromethamine [Toradol] 10 mg PO Q6H #40 tab 08/18/20 Lisinopril [Zestril] 40 mg PO DAILY #30 tab 08/18/20 Thiamine HCl [Vitamin B-1] 100 mg PO DAILY #30 tab 08/18/20 amLODIPine BESYLATE [Norvasc] 10 mg PO DAILY #30 tab 08/18/20 hydrALAZINE HCL [Apresoline] 50 mg PO BID #60 tab 08/18/20 Forms: Patient Portal Registration
[2020-08-18] MEDS: ENOXAPARIN SODIUM 40 MG/0.4 ML SYRG SC SCH (11:08)
[2020-08-18 11:59] VITALS: BP 158/86
== END 2020-08-18 11:59 | disposition home or self-care (01) | DRG 439 ==
LOC: ER 09:24 → MS 09:24
PROVIDERS: ADMIT Internal Medicine; ATTEND Internal Medicine